=== PATIENT | female | born 1945 | race African-American/Black ===

== ENCOUNTER 2016-06-24 09:51 | Inpatient (IN) | payer BC, MEDICARE ==
[~2016-06-24] VITALS: Ht 167.6 cm; Wt 126.2 kg
[2016-06-24] MEDS ORDERED: WARFARIN SODIUM5 MG ORAL (10:09)
[2016-06-24] MEDS ORDERED: LOTREL1 CAP ORAL (10:09)
[2016-06-24] MEDS ORDERED: AMLODIPINE BESY10 MG ORAL (10:09)
[2016-06-24] MEDS ORDERED: CATAPRES0.1 MG ORAL (10:09)
[2016-06-24] MEDS ORDERED: LOVENOX10 M2 SUBQ (10:09)
--- NOTE | 2016-06-24 10:10 | Emergency Room Report ---
History of Present Illness General Chief Complaint: Dyspnea/Respdistress Source: Patient Present Illness HPI The patient present with complaints of shortness of breath Cough congestion Patient was at [facility] recently with pneumonia and pulmonary embolism Patient has restarted anticoagulations in February Denies any headache, some mild bodyaches however Denies any abdominal pain Denies any dysuria frequency Patient began feeling more short of breath over the past few days Also increased cough and productive phlegm Allergies: Coded Allergies: No Known Allergies (Verified Allergy, Unknown, 08/26/08) Patient History Past Medical History: see triage record Pertinent Family History: none Reviewed Nursing Documentation: PMH: Agreed, PSxH: Agreed Nursing Documentation-PMH Past Medical History: No History, Except For Hx Hypertension: Yes Review of Systems All Other Systems: negative except mentioned in HPI Physical Exam Vital Signs Date Time Temp Pulse Resp B/P Pulse Ox O2 Delivery O2 Flow Rate FiO2 06/24/16 10:02 97.9 104 32 196/102 100 Room Air Sp02 EP Interpretation: reviewed, normal General Appearance: mild distress - Appears congested and short of breath Head: normocephalic, atraumatic Eyes: bilateral eye EOMI, bilateral eye PERRL ENT: hearing grossly normal, normal pharynx, TMs + canals normal, uvula midline Neck: full range of motion, supple, no meningismus, no bony tend Respiratory: no respiratory distress, no retraction, no accessory muscle use, rhonchi - Diffuse rhonchi bilaterally, mildly tachypneic Cardiovascular #1: normal peripheral pulses, regular rate, rhythm, no gallop, no murmur, edema - Bilaterally Gastrointestinal: normal bowel sounds, non tender, soft, no mass, no organomegaly, non-distended, no guarding, no hernia, no pulsatile mass, no rebound Genitourinary: no CVA tenderness Musculoskeletal: normal inspection Neurologic: oriented x3, responsive, train 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-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 nml as tested, motor strength/ tone normal, sensory intact Psychiatric: mood/affect normal Skin: normal color, no rash, warm/dry, palpation normal Lymphatic: normal inspection, no adenopathy Medical Decision Making Diagnostic Impression: Primary Impression: Dyspnea Additional Impressions: CHF (congestive heart failure) ACS (acute coronary syndrome) ER Course Patient is a fairly complex patient with multiple differential to consideration including but not limited to cardiac cardiopulmonary and vascular emergencies Patient has known pulmonary emboli Is currently on anticoagulation with Coumadin Patient chest x-ray showed congestion Patient's BNP was also elevated At this time given the patient's recent repeat CAT scan imaging showing pulmonary embolism Given the patient is on anticoagulation and appropriately anticoagulated I do not feel that emergency CAT scan was required Patient also saturating at 100% on room air without labored breathing Patient admitted for further inpatient care Labs Test 06/24/16 10:00 White Blood Count 3.9 K/UL (4.8-10.8) Red Blood Count 4.70 M/UL (4.20-5.40) Hemoglobin 12.1 G/DL (12.0-16.0) Hematocrit 38.9 % (37.0-47.0) Mean Corpuscular Volume 83 FL (80-99) Mean Corpuscular Hemoglobin 25.8 PG (27.0-31.0) Mean Corpuscular Hemoglobin Concent 31.2 G/DL (32.0-36.0) Red Cell Distribution Width 15.9 % (11.6-14.8) Platelet Count 210 K/UL (150-450) Mean Platelet Volume 10.4 FL (6.5-10.1) Neutrophils (%) (Auto) 61.0 % (45.0-75.0) Lymphocytes (%) (Auto) 19.8 % (20.0-45.0) Monocytes (%) (Auto) 13.9 % (1.0-10.0) Eosinophils (%) (Auto) 4.1 % (0.0-3.0) Basophils (%) (Auto) 1.1 % (0.0-2.0) Prothrombin Time 29.4 SEC (9.30-11.50) Prothromb Time International Ratio 2.8 (0.9-1.1) Activated Partial Thromboplast Time 42 SEC (23-33) Sodium Level 142 mEQ/L (135-145) Potassium Level 4.3 mEQ/L (3.4-4.9) Chloride Level 98 mEQ/L (98-107) Carbon Dioxide Level 32 mEQ/L (20-30) Anion Gap 12 (5-15) Blood Urea Nitrogen 16 mg/dL (7-23) Creatinine 1.2 mg/dL (0.5-0.9) Estimat Glomerular Filtration Rate 53.8 mL/min (>60) Glucose Level 93 mg/dL (74-106) Calcium Level 9.5 mg/dL (8.6-10.2) Total Bilirubin 0.3 mg/dL (0.0-1.2) Aspartate Amino Transf (AST/SGOT) 19 U/L (5-40) Alanine Aminotransferase (ALT/SGPT) 18 U/L (3-33) Alkaline Phosphatase 106 U/L (35-104) Total Creatine Kinase 154 U/L (26-140) Creatine Kinase MB < 1.5 ng/mL (< 3.8) Creatine Kinase MB Relative Index 0.9 Troponin I < 0.30 ng/mL (<=0.30) Pro-B-Type Natriuretic Peptide 318 pg/mL (0-125) Total Protein 7.8 g/dL (6.6-8.7) Albumin 4.1 g/dL (3.5-5.2) Globulin 3.7 g/dL Albumin/Globulin Ratio 1.1 (1.0-2.7) Lipase 18 U/L (< 60) EKG Diagnostic Results Rate: normal Rhythm: NSR ST Segments: other - Nonspecific ST and T-wave changes Rhythm Strip Diag. Results EP Interpretation: yes Rate: 76 Rhythm: NSR, no PVC's, no ectopy Chest X-Ray Diagnostic Results EP Interpretation: Yes Findings: no consolidation, no effusion, no pneumothorax, other - Pulmonary congestion, cardiomegaly Number of Views: 1 Last Vital Signs Date Time Temp Pulse Resp B/P Pulse Ox O2 Delivery O2 Flow Rate FiO2 06/24/16 10:02 97.9 104 32 196/102 100 Room Air Status: improved Disposition: ADMITTED INPATIENT Condition: Serious SONIA SALDAÑA D.O. Jun 24, 2016 10:10
[2016-06-24 10:18] VITALS: BP 180/84
[2016-06-24 10:41] LABS: INR 2.8 (0.9-1.1); PROTHROMBIN TIME 29.4 SEC (9.30-11.50); TROPONIN I < 0.30 ng/mL (<=0.30)
[2016-06-24 10:42] LABS: ALANINE AMINOTRANSFERASE 18 U/L (3-33); ALBUMIN/GLOBULIN RATIO 1.1 (1.0-2.7); ANION GAP 12 (5-15); ASPARTATE AMINO TRANSFERASE 19 U/L (5-40); BASOPHILS % (AUTO) 1.1 % (0.0-2.0); CALCIUM 9.5 mg/dL (8.6-10.2); CARBON DIOXIDE 32 mEQ/L (20-30); CHLORIDE 98 mEQ/L (98-107); CREATININE 1.2 mg/dL (0.5-0.9); EOSINOPHILS % (AUTO) 4.1 % (0.0-3.0); GLOMERULAR FILTRATION RATE 53.8 mL/min (>60); HEMOLYSIS 3; LIPASE 18 U/L (< 60); LYMPHOCYTES % (AUTO) 19.8 % (20.0-45.0); MEAN CORPUSCULAR HEMOGLOBIN 25.8 PG (27.0-31.0); MEAN CORPUSCULAR HGB CONC 31.2 G/DL (32.0-36.0); MEAN CORPUSCULAR VOLUME 83 FL (80-99); MEAN PLATELET VOLUME 10.4 FL (6.5-10.1); MONOCYTES % (AUTO) 13.9 % (1.0-10.0); PLATELET COUNT 210 K/UL (150-450); POTASSIUM 4.3 mEQ/L (3.4-4.9); RED CELL DISTRIBUTION WIDTH 15.9 % (11.6-14.8); SODIUM 142 mEQ/L (135-145); TOTAL PROTEIN 7.8 g/dL (6.6-8.7); WHITE BLOOD COUNT 3.9 K/UL (4.8-10.8)
[2016-06-24 10:52] LABS: CKMB < 1.5 ng/mL (< 3.8)
--- NOTE | 2016-06-24 11:10 | Diagnostic Imaging Report ---
Indication: Chest pain Technique: XRAY CHEST 1 V Comparison: None Findings: Cardiac silhouette is prominent. There is mild central pulmonary vascular congestion. There is no consolidation or pleural effusion. Degenerative changes of the spine are seen. Atherosclerotic changes are noted. Impression: Cardiomegaly with mild central pulmonary vascular congestion.
[2016-06-24] MEDS ORDERED: Levalbuterol Inh UD 1.25mg/0.5ml HHN ONE (11:15)
[2016-06-24 13:10] VITALS: BP 156/85
[2016-06-24 14:49] VITALS: BP 163/96
[2016-06-24] MEDS ORDERED: LORazepam Inj 2mg/ml 1ml IV PRN (15:00)
[2016-06-24] MEDS ORDERED: Promethazine/Codeine 5ml UD ORAL PRN (15:00)
[2016-06-24] MEDS ORDERED: Nitroglycerin Subl 0.4mg tab (Bottle Of 25) SL PRN (15:00)
[2016-06-24] MEDS ORDERED: Morphine Sulfate 2mg/ml Inj IVP PRN (15:00)
[2016-06-24] MEDS ORDERED: DuoNeb 0.5-3(2.5)mg/3ml neb HHN PRN (15:00)
[2016-06-24 16:16] VITALS: BP 157/96
[2016-06-24] MEDS ORDERED: NovoLOG Insulin Flexpen SUBQ SCH (16:30)
[2016-06-24] MEDS: Solu-MEDROL 40mg Inj IVP SCH (17:20)
[2016-06-24] MEDS ORDERED: Solu-MEDROL 125mg Inj IV SCH (18:00)
[2016-06-24] MEDS ORDERED: Warfarin Sodium 5mg ORAL SCH (18:00)
[2016-06-24 20:00] VITALS: BP 173/94
[2016-06-24] MEDS ORDERED: Heparin 5000 units/ml inj SUBQ SCH (21:00)
[2016-06-24] MEDS: Theophylline ER 100mg ORAL SCH (22:23)
[2016-06-24] MEDS: Piperacillin/Tazobactam 3.375 GM in D5W 110 ML IVPB SCH (22:23)
[2016-06-25] VITALS: BP 148/86
[2016-06-25] MEDS: Solu-MEDROL 40mg Inj IVP SCH ×4 (00:51→22:12)
[2016-06-25 04:00] VITALS: BP 147/81
[2016-06-25] MEDS: Piperacillin/Tazobactam 3.375 GM in D5W 110 ML IVPB SCH ×3 (06:04→22:12)
[2016-06-25 06:52] LABS: INR 2.1 (0.9-1.1); PROTHROMBIN TIME 22.4 SEC (9.30-11.50)
[2016-06-25 08:11] VITALS: BP 160/81
[2016-06-25] MEDS ORDERED: Warfarin Sodium 5mg ORAL SCH (09:00)
[2016-06-25] MEDS: Theophylline ER 100mg ORAL SCH ×2 (09:08→22:12)
[2016-06-25 11:32] VITALS: BP 149/80
--- NOTE | 2016-06-25 13:33 | Consultation ---
History of Present Illness General Date patient seen: Jun 24, 2016 Time patient seen: 01:00 Chief Complaint: Dyspnea/Respdistress Referring physician: Dr. Mendoza Reason for Consultation: dyspnea Present Illness HPI 70 year old female with hx of CHF, COPD, HTN, PE presented with complaints of shortness of breath Cough congestion. Patient was at [facility] recently with pneumonia and pulmonary embolism Patient began feeling more short of breath over the past few days Also increased cough and productive phlegm, with yellow color Allergies: Coded Allergies: No Known Allergies (Verified Allergy, Unknown, 08/26/08) Medication History Scheduled Amlodipine Besylate* (Amlodipine Besylate*), 10 MG ORAL DAILY, (Reported) Clonidine Hcl* (Catapres*), 0.1 MG ORAL EVERY 6 HOURS, (Reported) Enoxaparin* (Lovenox*), 80 MG SUBQ DAILY, (Reported) Warfarin Sod* (Warfarin Sod*), 5 MG ORAL DAILY, (Reported) Miscellaneous Medications Amlodipine/Benazepril (Amlodipine-Benazepril 5-20 mg), 1 CAP ORAL, (Reported) Patient History Healthcare decision maker Resuscitation status Full Code Advanced Directive on File Past Medical/Surgical History Past Medical/Surgical History: (1) Pulmonary emboli (2) Morbid obesity with BMI of 40.0-44.9, adult (3) CHF (congestive heart failure) Review of Systems Respiratory: Reports: ANTOINE, shortness of breath, sputum Physical Exam Neck: non-tender, normal alignment Respiratory/Chest: chest wall non-tender, lungs clear Breasts: no masses Cardiovascular/Chest: normal peripheral pulses Abdomen: normal bowel sounds, non tender Genitourinary/Rectal: normal genital exam, normal rectal exam Extremities: normal range of motion, non-tender 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, no motor/sensory deficits Lymphatic: anterior cervical Musculoskeletal: normal muscle bulk Last 24 Hour Vital Signs Date Time Temp Pulse Resp B/P Pulse Ox O2 Delivery O2 Flow Rate FiO2 06/25/16 12:54 149/80 06/25/16 11:32 98.1 98 20 149/80 95 Room Air 06/25/16 09:08 88 160/81 06/25/16 08:11 98.2 88 20 160/81 94 Room Air 06/25/16 08:00 81 06/25/16 07:41 91 18 95 Room Air 06/25/16 07:33 91 18 95 Room Air 06/25/16 06:09 147/81 06/25/16 04:00 70 06/25/16 04:00 98.1 106 18 147/81 98 Room Air 06/25/16 02:46 85 18 95 Room Air 06/25/16 02:38 86 18 94 Room Air 06/25/16 00:30 100 18 95 Room Air 06/25/16 00:20 94 18 95 Room Air 06/25/16 00:18 148/86 06/25/16 00:00 98.2 97 18 148/86 96 Room Air 06/25/16 00:00 90 06/24/16 20:08 100 18 95 Room Air 06/24/16 20:00 96 18 94 Room Air 06/24/16 20:00 99.5 98 18 173/94 96 06/24/16 20:00 99 06/24/16 17:28 157/96 06/24/16 17:21 97 157/96 06/24/16 16:16 98.2 97 18 157/96 98 Room Air 06/24/16 16:00 95 06/24/16 14:49 98.4 99 18 163/96 97 Room Air 06/24/16 14:22 97.9 98 16 156/85 100 Room Air Intake and Output 06/24/16 06/25/16 19:00 07:00 Intake Total 240 ml 497.5 ml Balance 240 ml 497.5 ml Intake Oral 240 ml 360 ml IV Total 137.5 ml # Voids 2 2 Laboratory Tests Test 06/25/16 05:30 Prothrombin Time 22.4 SEC (9.30-11.50) H Prothromb Time International Ratio 2.1 (0.9-1.1) H Height (Feet): 5 Height (Inches): 6.00 Weight (Pounds): 275 Medications Current Medications Medications (Trade) Dose Ordered Sig/Maximus Route PRN Reason Start Time Stop Time Status Last Admin Dose Admin Albuterol/ Ipratropium (DuoNeb 0.5-3(2.5)mg/3ml) 3 ml EVERY 4 HOURS PRN HHN dyspnea 06/24/16 15:00 06/29/16 14:59 Amlodipine Besylate (Norvasc) 10 mg DAILY ORAL 06/24/16 16:00 07/24/16 15:59 06/25/16 09:08 Clonidine HCl (Catapres) 0.1 mg EVERY 6 HOURS ORAL 06/24/16 18:00 07/24/16 17:59 06/25/16 12:54 Dextrose (Dextrose 50%) STAT PRN IV Hypoglycemia 06/24/16 15:00 07/24/16 14:59 Furosemide (Lasix) 20 mg DAILY IV 06/25/16 09:00 07/25/16 08:59 06/25/16 09:07 Methylprednisolone Sodium Succinate (Solu-MEDROL) 40 mg EVERY 8 HOURS IVP 06/24/16 16:00 07/24/16 15:59 06/25/16 06:05 Morphine Sulfate (Morphine Sulfate) 2 mg EVERY 4 HOURS PRN IVP severe pain 7-10 06/24/16 15:00 07/01/16 14:59 Nitroglycerin (Ntg) 0.4 mg Q5M X 3 DOSES PRN SL Prn Chest Pain 06/24/16 15:00 07/24/16 14:59 Ondansetron HCl (Zofran) 4 mg Q6H PRN IVP Nausea & Vomiting 06/24/16 15:00 07/24/16 14:59 Piperacillin Sod/ Tazobactam Sod/ Dextrose (Zosyn/D5W) 110 ml @ 27.5 mls/hr EVERY 8 HOURS IVPB 06/24/16 22:00 07/01/16 21:59 06/25/16 06:04 Promethazine HCl/ Codeine (Phenergan with Codeine) 5 ml EVERY 6 HOURS PRN ORAL cough 06/24/16 15:00 07/24/16 14:59 Temazepam (Restoril) 15 mg HSPRN PRN ORAL Insomnia 06/24/16 15:00 07/01/16 14:59 Theophylline 100 mg 100 mg EVERY 12 HOURS ORAL 06/24/16 21:00 07/24/16 20:59 06/25/16 09:08 Warfarin Sodium (Coumadin per pharmacy) 1 ea DAILY PRN MISC . 06/24/16 16:45 07/24/16 16:44 Warfarin Sodium (Coumadin) 8 mg COUMADIN PO 06/25/16 17:00 06/25/16 17:01 Assessment/Plan Problem List: (1) Purulent bronchitis ICD Codes: J41.1 - Mucopurulent chronic bronchitis SNOMED: 85408650 (2) Morbid obesity with BMI of 40.0-44.9, adult ICD Codes: E66.01 - Morbid (severe) obesity due to excess calories; Z68.41 - Body mass index (BMI) 40.0-44.9, adult SNOMED: 493877542, 609688246 (3) CHF (congestive heart failure) ICD Codes: I50.9 - Heart failure, unspecified SNOMED: 97502102 (4) Dyspnea ICD Codes: R06.00 - Dyspnea, unspecified SNOMED: 039107658 Assessment/Plan respiratory treatment IV antibiotics short course of steroids chest pt incentive spirometry cardiology evaluation to optimize cardiac meds. JUAN DURAN Jun 25, 2016 13:33
[2016-06-25 16:21] VITALS: BP 143/78
[2016-06-25] MEDS ORDERED: Warfarin Sodium 4mg PO SCH (17:00)
[2016-06-25 20:00] VITALS: BP 130/68
--- NOTE | 2016-06-25 20:54 | Cardiology Report ---
APPROVED REPORT EXAM: Two-dimensional and M-mode echocardiogram with Doppler and color Doppler. INDICATION Left ventricular function M-Mode DIMENSIONS IVSd1.6 (0.7-1.1cm)Left Atrium (MM)3.6 (1.6-4.0cm) LVDd4.4 (3.5-5.6cm)Aortic Root2.7 (2.0-3.7cm) PWd0.8 (0.7-1.1cm)Aortic Cusp Exc.1.8 (1.5-2.0cm) LVDs3.1 (2.5-4.0cm) PWs1.2 cm Technically difficult study due to poor acoustic windows. Normal left ventricular chamber size, systolic function and wall motion , hoever on some view the mid to distal septum appears hypokinetic Left ventricular ejection fraction estimated to be 60-65%. Moderate left ventricular hypertrophy. No evidence of pericardial fat or effusion. Right cardiac chamber sizes are within normal limits. Moderate left atrial enlargement by 2D. Focal aortic valve sclerosis with adequate cusp excursion Thickened mitral valve leaflets with normal excursion. Mild mitral annulus and aortic root calcification. Pulmonic valve not well visualized. Normal tricuspid valve structure. IVC is normal in size with physiologic collapse. A color flow and spectral Doppler study was performed and revealed: No aortic regurgitation. No mitral regurgitation. Left ventricular diastolic dysfunction grade 1. Trace tricuspid regurgitation. Tricuspid systolic velocities suggests peak right ventricular systolic pressure of 10 mmHg
--- NOTE | 2016-06-25 21:05 | History and Physical ---
History of Present Illness General Date patient seen: Jun 25, 2016 Time patient seen: 21:00 Reason for Hospitalization: Dyspnea/Respdistress Present Illness HPI this is a nunfortunate morbid obese femlae ih history of pulmonary embolism reactive ariway disease snoring posible sleep apnea presend with severe sob sen inthe er admmmited noted to be wheezing Allergies: Coded Allergies: No Known Allergies (Verified Allergy, Unknown, 08/26/08) Medication History Scheduled Amlodipine Besylate* (Amlodipine Besylate*), 10 MG ORAL DAILY, (Reported) Clonidine Hcl* (Catapres*), 0.1 MG ORAL EVERY 6 HOURS, (Reported) Enoxaparin* (Lovenox*), 80 MG SUBQ DAILY, (Reported) Warfarin Sod* (Warfarin Sod*), 5 MG ORAL DAILY, (Reported) Miscellaneous Medications Amlodipine/Benazepril (Amlodipine-Benazepril 5-20 mg), 1 CAP ORAL, (Reported) Patient History Healthcare decision maker Resuscitation status Full Code Advanced Directive on File Patient History Narrative hypertenidosin morbid obese oa knee pulmonary embiolism fatuge renal mass Review of Systems Eye: Reports: no symptoms ENT: Reports: no symptoms Respiratory: Reports: cough, shortness of breath, sputum, wheezing Gastrointestinal: Reports: no symptoms Genitourinary: Reports: no symptoms Musculoskeletal: Reports: joint pain, joint swelling, muscle pain Hematologic/Lymphatic: Reports: other - historyof pulmonary embolism on coumadin Physical Exam General Appearance: WD/WN, other - obese HEENT: normocephalic Neck: non-tender Respiratory/Chest: other - inspiratoty and expiratory wheezing Cardiovascular/Chest: normal rate, regular rhythm Abdomen: normal bowel sounds, soft Extremities: other - no cvlubbing Last 24 Hour Vital Signs Date Time Temp Pulse Resp B/P Pulse Ox O2 Delivery O2 Flow Rate FiO2 06/25/16 19:46 75 18 95 Room Air 06/25/16 19:45 72 18 Room Air 06/25/16 19:36 72 18 95 Room Air 06/25/16 17:48 143/78 06/25/16 16:21 98.1 87 18 143/78 95 Room Air 06/25/16 14:57 84 16 96 Room Air 06/25/16 14:57 86 16 96 Room Air 06/25/16 12:54 149/80 06/25/16 12:00 79 06/25/16 11:32 98.1 98 20 149/80 95 Room Air 06/25/16 11:09 92 18 96 Room Air 06/25/16 11:02 89 18 95 Room Air 06/25/16 09:08 88 160/81 06/25/16 08:11 98.2 88 20 160/81 94 Room Air 06/25/16 08:00 81 06/25/16 07:41 91 18 95 Room Air 06/25/16 07:33 91 18 95 Room Air 06/25/16 06:09 147/81 06/25/16 04:00 70 06/25/16 04:00 98.1 106 18 147/81 98 Room Air 06/25/16 02:46 85 18 95 Room Air 06/25/16 02:38 86 18 94 Room Air 06/25/16 00:30 100 18 95 Room Air 06/25/16 00:20 94 18 95 Room Air 06/25/16 00:18 148/86 06/25/16 00:00 98.2 97 18 148/86 96 Room Air 06/25/16 00:00 90 Intake and Output 06/24/16 06/25/16 19:00 07:00 Intake Total 240 ml 497.5 ml Balance 240 ml 497.5 ml Intake Oral 240 ml 360 ml IV Total 137.5 ml # Voids 2 2 Laboratory Tests Test 06/25/16 05:30 Prothrombin Time 22.4 SEC (9.30-11.50) H Prothromb Time International Ratio 2.1 (0.9-1.1) H Height (Feet): 5 Height (Inches): 6.00 Weight (Pounds): 275 Medications Current Medications Medications (Trade) Dose Ordered Sig/Maximsu Route PRN Reason Start Time Stop Time Status Last Admin Dose Admin Albuterol/ Ipratropium (DuoNeb 0.5-3(2.5)mg/3ml) 3 ml EVERY 4 HOURS PRN HHN dyspnea 06/24/16 15:00 06/29/16 14:59 Amlodipine Besylate (Norvasc) 10 mg DAILY ORAL 06/24/16 16:00 07/24/16 15:59 06/25/16 09:08 Clonidine HCl (Catapres) 0.1 mg EVERY 6 HOURS ORAL 06/24/16 18:00 07/24/16 17:59 06/25/16 17:48 Dextrose (Dextrose 50%) STAT PRN IV Hypoglycemia 06/24/16 15:00 07/24/16 14:59 Furosemide (Lasix) 20 mg DAILY IV 06/25/16 09:00 07/25/16 08:59 06/25/16 09:07 Methylprednisolone Sodium Succinate (Solu-MEDROL) 40 mg EVERY 8 HOURS IVP 06/24/16 16:00 07/24/16 15:59 06/25/16 13:47 Morphine Sulfate (Morphine Sulfate) 2 mg EVERY 4 HOURS PRN IVP severe pain 7-10 06/24/16 15:00 07/01/16 14:59 Nitroglycerin (Ntg) 0.4 mg Q5M X 3 DOSES PRN SL Prn Chest Pain 06/24/16 15:00 07/24/16 14:59 Ondansetron HCl (Zofran) 4 mg Q6H PRN IVP Nausea & Vomiting 06/24/16 15:00 07/24/16 14:59 Piperacillin Sod/ Tazobactam Sod/ Dextrose (Zosyn/D5W) 110 ml @ 27.5 mls/hr EVERY 8 HOURS IVPB 06/24/16 22:00 07/01/16 21:59 06/25/16 13:48 Promethazine HCl/ Codeine (Phenergan with Codeine) 5 ml EVERY 6 HOURS PRN ORAL cough 06/24/16 15:00 07/24/16 14:59 Temazepam (Restoril) 15 mg HSPRN PRN ORAL Insomnia 06/24/16 15:00 07/01/16 14:59 Theophylline 100 mg 100 mg EVERY 12 HOURS ORAL 06/24/16 21:00 07/24/16 20:59 06/25/16 09:08 Warfarin Sodium (Coumadin per pharmacy) 1 ea DAILY PRN MISC . 06/24/16 16:45 07/24/16 16:44 Assessment/Plan Status Narrative respiratory insufficeincy puylmonjary emolism tracheobronchitis reactive air way diease exacerbation morbid obese hypertenison Assessment/Plan [facility] emilee lgive zithromax and on zpack monitor coumadin level adn iinr bronchiodilator doing we;;hypertenison on antihypertensive LILY DONIS Jun 25, 2016 21:05
--- NOTE | 2016-06-25 21:14 | Cardiology Report ---
APPROVED REPORT EKG Measurement Heart [id number] Normal sinus rhythm Possible Left atrial enlargement Borderline ECG
[2016-06-26 00:20] VITALS: BP 124/68
[2016-06-26 04:00] VITALS: BP 136/77
[2016-06-26] MEDS: Solu-MEDROL 40mg Inj IVP SCH ×3 (05:20→21:29)
[2016-06-26] MEDS: Piperacillin/Tazobactam 3.375 GM in D5W 110 ML IVPB SCH ×3 (05:20→21:29)
[2016-06-26 07:35] LABS: MEAN CORPUSCULAR HEMOGLOBIN 26.7 PG (27.0-31.0); MEAN CORPUSCULAR HGB CONC 32.7 G/DL (32.0-36.0); MEAN CORPUSCULAR VOLUME 82 FL (80-99); MEAN PLATELET VOLUME 9.2 FL (6.5-10.1); PLATELET COUNT 215 K/UL (150-450); RED BLOOD COUNT 4.56 M/UL (4.20-5.40); RED CELL DISTRIBUTION WIDTH 15.6 % (11.6-14.8); WHITE BLOOD COUNT 10.9 K/UL (4.8-10.8)
[2016-06-26 07:43] LABS: CREATININE 1.4 mg/dL (0.5-0.9); GLOMERULAR FILTRATION RATE 45.1 mL/min (>60); POTASSIUM 3.8 mEQ/L (3.4-4.9); TOTAL PROTEIN 7.3 g/dL (6.6-8.7)
[2016-06-26 07:59] LABS: INR 2.7 (0.9-1.1)
[2016-06-26 08:00] VITALS: BP 131/68
[2016-06-26] MEDS: Azithromycin 250mg tab ORAL SCH (08:52)
[2016-06-26] MEDS: Theophylline ER 100mg ORAL SCH ×2 (08:52→21:29)
[2016-06-26 11:51] LABS: BAND NEUTROPHILS % (MANUAL) 1 % (0-8); LYMPHOCYTES % (MANUAL) 11 % (20-45); NEUTROPHILS % (MANUAL) 82 % (45-75); TOTAL CELLS COUNTED 100
[2016-06-26 11:52] LABS: BASOPHILS % (MANUAL) 0 % (0-2); EOSINOPHILS % (MANUAL) 0 % (0-3); PLATELET ESTIMATE ADEQUATE; PLATELET MORPHOLOGY NORMAL
[2016-06-26 12:00] VITALS: BP 130/73
[2016-06-26 16:00] VITALS: BP 126/69
[2016-06-26] MEDS ORDERED: Warfarin Sodium 5mg ORAL SCH (17:00)
[2016-06-26 20:00] VITALS: BP 103/56
[2016-06-27] VITALS: BP 134/71
[2016-06-27 04:00] VITALS: BP 139/74
[2016-06-27] MEDS: Piperacillin/Tazobactam 3.375 GM in D5W 110 ML IVPB SCH ×3 (05:37→21:06)
[2016-06-27] MEDS: Solu-MEDROL 40mg Inj IVP SCH (05:38)
[2016-06-27] MEDS: Azithromycin 250mg tab ORAL SCH (08:04)
[2016-06-27] MEDS: Theophylline ER 100mg ORAL SCH ×2 (08:04→21:06)
[2016-06-27 08:14] LABS: INR 3.1 (0.9-1.1); PROTHROMBIN TIME 32.3 SEC (9.30-11.50)
[2016-06-27 08:34] VITALS: BP 134/74
[2016-06-27 11:39] VITALS: BP 116/60
--- NOTE | 2016-06-27 12:56 | Diagnostic Imaging Report ---
Indication: DYSPNEA, cough Technique: One view of the chest Comparison: 06/24/2016 Findings: Lungs and pleural spaces are clear. Heart size is upper limits normal. Previously demonstrated central vascular congestion has improved. Atelectasis is seen in the right perihilar region Impression: Improved interstitial congestion, over 2 days Other findings as noted
--- NOTE | 2016-06-27 15:12 | Pulmonology Progress Note ---
Assessment/Plan Problems: (1) Purulent bronchitis (2) Morbid obesity with BMI of 40.0-44.9, adult (3) CHF (congestive heart failure) (4) Dyspnea Assessment/Plan respiratory treatment check sputum Iv antibiotics chest pt on lasix and theophyline med/surg t Subjective ROS Limited/Unobtainable: No Interval Events: comforabel, still coughing, Allergies: Coded Allergies: No Known Allergies (Verified Allergy, Unknown, 08/26/08) Objective Last 24 Hour Vital Signs Date Time Temp Pulse Resp B/P Pulse Ox O2 Delivery O2 Flow Rate FiO2 06/27/16 12:00 116/60 06/27/16 12:00 69 06/27/16 11:39 97.2 63 20 116/60 95 Room Air 06/27/16 08:34 97.5 76 18 134/74 95 Room Air 06/27/16 08:04 76 134/74 06/27/16 08:00 79 06/27/16 05:37 139/74 06/27/16 04:00 97.7 60 20 139/74 95 Room Air 06/27/16 04:00 55 06/27/16 03:20 Room Air 21 06/27/16 03:20 Room Air 21 06/27/16 00:07 134/71 06/27/16 00:00 54 06/27/16 00:00 97.9 58 18 134/71 96 Room Air 06/26/16 23:01 70 20 98 Room Air 21 06/26/16 23:00 66 20 96 Room Air 21 06/26/16 20:00 98.1 61 18 103/56 96 Room Air 06/26/16 20:00 79 06/26/16 19:30 93 18 95 Room Air 21 06/26/16 19:30 70 20 98 Room Air 21 06/26/16 17:39 126/69 06/26/16 16:00 64 06/26/16 16:00 97.5 58 18 126/69 94 Room Air 06/26/16 15:55 72 19 98 Room Air 21 06/26/16 15:55 72 19 98 Room Air 21 Intake and Output 06/26/16 06/27/16 19:00 07:00 Intake Total 760 ml 230.0 ml Balance 760 ml 230.0 ml Intake Oral 650 ml 120 ml IV Total 110 ml 110.0 ml # Voids 3 Objective General Appearance: WD/WN HEENT: normocephalic, atraumatic Respiratory/Chest: chest wall non-tender, loud rhonchi Cardiovascular: normal peripheral pulses, normal rate Genitourinary: normal external genitalia Extremities: no cyanosis, no clubbing Skin: no rash 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 Microbiology Date/Time Source Procedure Growth Status 06/26/16 08:50 Sputum Gram Stain - Final Resulted 06/26/16 08:50 Sputum Sputum Culture Pending Resulted Laboratory Tests 06/27/16 07:30: Prothrombin Time 32.3H, Prothromb Time International Ratio 3.1H Current Medications Medications (Trade) Dose Ordered Sig/Maximus Route PRN Reason Start Time Stop Time Status Last Admin Dose Admin Albuterol/ Ipratropium (DuoNeb 0.5-3(2.5)mg/3ml) 3 ml EVERY 4 HOURS PRN HHN dyspnea 06/24/16 15:00 06/29/16 14:59 Amlodipine Besylate (Norvasc) 10 mg DAILY ORAL 06/24/16 16:00 07/24/16 15:59 06/27/16 08:04 Azithromycin (Zithromax) 500 mg DAILY ORAL 06/26/16 09:00 07/03/16 08:59 06/27/16 08:04 Clonidine HCl (Catapres) 0.1 mg EVERY 6 HOURS ORAL 06/24/16 18:00 07/24/16 17:59 06/27/16 05:37 Dextrose (Dextrose 50%) STAT PRN IV Hypoglycemia 06/24/16 15:00 07/24/16 14:59 Furosemide (Lasix) 20 mg DAILY IV 06/25/16 09:00 07/25/16 08:59 06/27/16 08:05 Morphine Sulfate (Morphine Sulfate) 2 mg EVERY 4 HOURS PRN IVP severe pain 7-10 06/24/16 15:00 07/01/16 14:59 Nitroglycerin (Ntg) 0.4 mg Q5M X 3 DOSES PRN SL Prn Chest Pain 06/24/16 15:00 07/24/16 14:59 Ondansetron HCl (Zofran) 4 mg Q6H PRN IVP Nausea & Vomiting 06/24/16 15:00 07/24/16 14:59 Piperacillin Sod/ Tazobactam Sod/ Dextrose (Zosyn/D5W) 110 ml @ 27.5 mls/hr EVERY 8 HOURS IVPB 06/24/16 22:00 07/01/16 21:59 06/27/16 13:52 Promethazine HCl/ Codeine (Phenergan with Codeine) 5 ml EVERY 6 HOURS PRN ORAL cough 06/24/16 15:00 07/24/16 14:59 Temazepam (Restoril) 15 mg HSPRN PRN ORAL Insomnia 06/24/16 15:00 07/01/16 14:59 Theophylline 100 mg 100 mg EVERY 12 HOURS ORAL 06/24/16 21:00 07/24/16 20:59 06/27/16 08:04 Warfarin Sodium (Coumadin per pharmacy) 1 ea DAILY PRN MISC . 06/24/16 16:45 07/24/16 16:44 JUAN DURAN Jun 27, 2016 15:12
[2016-06-27 16:00] VITALS: BP 127/76
[2016-06-27 20:00] VITALS: BP 131/63
[2016-06-28] VITALS: BP 110/59
[2016-06-28 04:00] VITALS: BP 112/59
[2016-06-28] MEDS: Piperacillin/Tazobactam 3.375 GM in D5W 110 ML IVPB SCH ×3 (05:23→21:27)
[2016-06-28 08:17] VITALS: BP 120/58
[2016-06-28] MEDS: Theophylline ER 100mg ORAL SCH ×2 (09:15→21:27)
[2016-06-28] MEDS: Azithromycin 250mg tab ORAL SCH (09:15)
[2016-06-28 10:08] LABS: INR 2.5 (0.9-1.1); PROTHROMBIN TIME 26.1 SEC (9.30-11.50)
[2016-06-28 11:21] VITALS: BP 119/58
[2016-06-28 16:00] VITALS: BP 116/61
--- NOTE | 2016-06-28 16:10 | Pulmonology Progress Note ---
Assessment/Plan Problems: (1) Purulent bronchitis (2) Morbid obesity with BMI of 40.0-44.9, adult (3) CHF (congestive heart failure) (4) Dyspnea Assessment/Plan improivng check electrolytes respiratory treatment check sputum Iv antibiotics chest pt on lasix and theophyline med/surg today dc home in 1- 2 days t Subjective ROS Limited/Unobtainable: No Constitutional: Reports: no symptoms HEENT: Repors: no symptoms Respiratory: Reports: no symptoms Cardiovascular: Reports: no symptoms Allergies: Coded Allergies: No Known Allergies (Verified Allergy, Unknown, 08/26/08) Objective Last 24 Hour Vital Signs Date Time Temp Pulse Resp B/P Pulse Ox O2 Delivery O2 Flow Rate FiO2 06/28/16 12:00 69 06/28/16 11:49 119/58 06/28/16 11:21 97.2 84 18 119/58 95 Room Air 06/28/16 10:26 133 06/28/16 09:15 68 120/58 06/28/16 08:17 97.7 68 18 120/58 96 Room Air 06/28/16 08:00 71 06/28/16 05:17 112/59 06/28/16 04:00 65 06/28/16 04:00 97.7 56 16 112/59 97 Room Air 06/28/16 00:00 97.2 60 16 110/59 95 Room Air 06/28/16 00:00 110/59 06/28/16 00:00 59 06/27/16 20:00 97.9 82 18 131/63 96 Room Air 06/27/16 20:00 71 06/27/16 17:43 127/76 Intake and Output 06/27/16 06/28/16 19:00 07:00 Intake Total 377.5 ml 779.3 ml Output Total 1 ml Balance 377.5 ml 778.3 ml Intake Oral 240 ml 600 ml IV Total 137.5 ml 179.3 ml Output Urine Total 1 ml # Voids 2 3 Objective General Appearance: WD/WN HEENT: normocephalic, atraumatic Respiratory/Chest: chest wall non-tender, loud rhonchi Cardiovascular: normal peripheral pulses, normal rate Genitourinary: normal external genitalia Extremities: no cyanosis, no clubbing Skin: no rash Neurologic/Psychiatric: access developer II-XII grossly normal HEENT: normocephalic, atraumatic Respiratory/Chest: chest wall non-tender, lungs clear Cardiovascular: normal peripheral pulses, regular rhythm Abdomen: normal bowel sounds, soft, non tender Extremities: no cyanosis, no clubbing Microbiology Date/Time Source Procedure Growth Status 06/26/16 08:50 Sputum Gram Stain - Final Complete 06/26/16 08:50 Sputum Sputum Culture - Final NORMAL UPPER RESPIRATORY NERY PRESENT Complete Laboratory Tests 06/28/16 09:20: Prothrombin Time 26.1H, Prothromb Time International Ratio 2.5H Current Medications Medications (Trade) Dose Ordered Sig/Maximus Route PRN Reason Start Time Stop Time Status Last Admin Dose Admin Albuterol/ Ipratropium (DuoNeb 0.5-3(2.5)mg/3ml) 3 ml EVERY 4 HOURS PRN HHN dyspnea 06/24/16 15:00 06/29/16 14:59 Amlodipine Besylate (Norvasc) 10 mg DAILY ORAL 06/24/16 16:00 07/24/16 15:59 06/28/16 09:15 Azithromycin (Zithromax) 500 mg DAILY ORAL 06/26/16 09:00 07/03/16 08:59 06/28/16 09:15 Clonidine HCl (Catapres) 0.1 mg EVERY 6 HOURS ORAL 06/24/16 18:00 07/24/16 17:59 06/28/16 11:49 Dextrose (Dextrose 50%) STAT PRN IV Hypoglycemia 06/24/16 15:00 07/24/16 14:59 Furosemide (Lasix) 20 mg DAILY IV 06/25/16 09:00 07/25/16 08:59 06/28/16 09:16 Morphine Sulfate (Morphine Sulfate) 2 mg EVERY 4 HOURS PRN IVP severe pain 7-10 06/24/16 15:00 07/01/16 14:59 Nitroglycerin (Ntg) 0.4 mg Q5M X 3 DOSES PRN SL Prn Chest Pain 06/24/16 15:00 07/24/16 14:59 Ondansetron HCl (Zofran) 4 mg Q6H PRN IVP Nausea & Vomiting 06/24/16 15:00 07/24/16 14:59 Piperacillin Sod/ Tazobactam Sod/ Dextrose (Zosyn/D5W) 110 ml @ 27.5 mls/hr EVERY 8 HOURS IVPB 06/24/16 22:00 07/01/16 21:59 06/28/16 13:54 Promethazine HCl/ Codeine (Phenergan with Codeine) 5 ml EVERY 6 HOURS PRN ORAL cough 06/24/16 15:00 07/24/16 14:59 Temazepam (Restoril) 15 mg HSPRN PRN ORAL Insomnia 06/24/16 15:00 07/01/16 14:59 Theophylline 100 mg 100 mg EVERY 12 HOURS ORAL 06/24/16 21:00 07/24/16 20:59 06/28/16 09:15 Warfarin Sodium (Coumadin per pharmacy) 1 ea DAILY PRN MISC . 06/24/16 16:45 07/24/16 16:44 Warfarin Sodium (Coumadin) 6 mg COUMADIN ORAL 06/28/16 17:00 06/28/16 17:01 JUAN DURAN Jun 28, 2016 16:10
[2016-06-28] MEDS ORDERED: Warfarin Sodium 3mg ORAL SCH (17:00)
[2016-06-28] MEDS ORDERED: Nitroglycerin Subl 0.4mg tab (Bottle Of 25) SL PRN (18:00)
[2016-06-28] MEDS ORDERED: Promethazine/Codeine 5ml UD ORAL PRN (18:00)
[2016-06-28 20:00] VITALS: BP 117/54
[2016-06-28] MEDS ORDERED: Morphine Sulfate 2mg/ml Inj IVP PRN (21:00)
[2016-06-28] MEDS ORDERED: DuoNeb 0.5-3(2.5)mg/3ml neb HHN PRN (21:00)
[2016-06-29] VITALS: BP 116/62
[2016-06-29 04:00] VITALS: BP 137/71
[2016-06-29] MEDS: Piperacillin/Tazobactam 3.375 GM in D5W 110 ML IVPB SCH ×3 (05:41→21:13)
[2016-06-29 06:44] LABS: BASOPHILS % (AUTO) 0.8 % (0.0-2.0); EOSINOPHILS % (AUTO) 1.8 % (0.0-3.0); LYMPHOCYTES % (AUTO) 24.5 % (20.0-45.0); MEAN CORPUSCULAR HEMOGLOBIN 27.1 PG (27.0-31.0); MEAN CORPUSCULAR HGB CONC 32.1 G/DL (32.0-36.0); MEAN CORPUSCULAR VOLUME 84 FL (80-99); MEAN PLATELET VOLUME 8.4 FL (6.5-10.1); MONOCYTES % (AUTO) 12.6 % (1.0-10.0); NEUTROPHILS % (AUTO) 60.2 % (45.0-75.0); PLATELET COUNT 238 K/UL (150-450); RED BLOOD COUNT 4.24 M/UL (4.20-5.40); RED CELL DISTRIBUTION WIDTH 15.5 % (11.6-14.8); WHITE BLOOD COUNT 8.7 K/UL (4.8-10.8)
[2016-06-29 06:45] LABS: PROTHROMBIN TIME 20.5 SEC (9.30-11.50)
[2016-06-29 07:19] LABS: ALBUMIN/GLOBULIN RATIO 1.1 (1.0-2.7); CALCIUM 8.7 mg/dL (8.6-10.2); CREATININE 1.4 mg/dL (0.5-0.9); GLOMERULAR FILTRATION RATE 45.1 mL/min (>60); POTASSIUM 3.5 mEQ/L (3.4-4.9); TOTAL PROTEIN 6.2 g/dL (6.6-8.7)
[2016-06-29 07:51] VITALS: BP 136/68
[2016-06-29] MEDS: Theophylline ER 100mg ORAL SCH ×2 (08:40→21:12)
[2016-06-29] MEDS ORDERED: Azithromycin 250mg tab ORAL SCH (09:00)
[2016-06-29 11:24] VITALS: BP 124/69
[2016-06-29 16:16] VITALS: BP 107/53
[2016-06-29] MEDS ORDERED: Warfarin Sodium 5mg ORAL ONE (17:00)
[2016-06-29] MEDS ORDERED: Tubing IV Secondary IV ONE (17:39)
[2016-06-29] MEDS ORDERED: NS 275ml ONE (17:39)
--- NOTE | 2016-06-29 18:26 | Pulmonology Progress Note ---
Assessment/Plan Problems: (1) Purulent bronchitis (2) Morbid obesity with BMI of 40.0-44.9, adult (3) CHF (congestive heart failure) (4) Dyspnea Assessment/Plan improivng check electrolytes respiratory treatment check sputum Iv antibiotics chest pt med/surg today dc home in am t Subjective ROS Limited/Unobtainable: No Allergies: Coded Allergies: No Known Allergies (Verified Allergy, Unknown, 08/26/08) Objective Last 24 Hour Vital Signs Date Time Temp Pulse Resp B/P Pulse Ox O2 Delivery O2 Flow Rate FiO2 06/29/16 17:38 107/53 06/29/16 16:16 97.7 73 19 107/53 93 Room Air 06/29/16 12:48 125/60 06/29/16 11:24 97.9 80 19 124/69 98 Room Air 06/29/16 08:41 96 136/68 06/29/16 07:51 97.5 96 19 136/68 95 Room Air 06/29/16 06:46 122/63 06/29/16 04:00 97.3 71 18 137/71 96 Room Air 06/29/16 00:00 97.0 74 18 116/62 94 Room Air 06/29/16 00:00 116/62 06/28/16 20:00 97.0 119 16 117/54 94 Room Air 06/28/16 18:30 116/61 Intake and Output 06/28/16 06/29/16 19:00 07:00 Intake Total 322.5 ml 517.5 ml Balance 322.5 ml 517.5 ml Intake Oral 240 ml 380 ml IV Total 82.5 ml 137.5 ml # Voids 2 5 # Bowel Movements 2 Objective General Appearance: WD/WN HEENT: normocephalic, atraumatic Respiratory/Chest: chest wall non-tender, loud rhonchi Cardiovascular: normal peripheral pulses, normal rate Genitourinary: normal external genitalia Extremities: no cyanosis, no clubbing Skin: no rash Neurologic/Psychiatric: asthma educator II-XII grossly normal Laboratory Tests 06/29/16 06:14: White Blood Count 8.7, Red Blood Count 4.24, Hemoglobin 11.5L, Hematocrit 35.8L , Mean Corpuscular Volume 84, Mean Corpuscular Hemoglobin 27.1, Mean Corpuscular Hemoglobin Concent 32.1, Red Cell Distribution Width 15.5H, Platelet Count 238, Mean Platelet Volume 8.4, Neutrophils (%) (Auto) 60.2, Lymphocytes (%) (Auto) 24.5, Monocytes (%) (Auto) 12.6H, Eosinophils (%) (Auto) 1.8, Basophils (%) (Auto) 0.8, Prothrombin Time 20.5H, Prothromb Time International Ratio 2.0H, Sodium Level 141, Potassium Level 3.5, Chloride Level 96L, Carbon Dioxide Level 31H, Anion Gap 14, Blood Urea Nitrogen 32H, Creatinine 1.4H, Estimat Glomerular Filtration Rate 45.1, Glucose Level 101, Calcium Level 8.7, Total Bilirubin 0.3, Aspartate Amino Transf (AST/SGOT) 13, Alanine Aminotransferase (ALT/SGPT) 14, Alkaline Phosphatase 74, Pro-B-Type Natriuretic Peptide 86, Total Protein 6.2L, Albumin 3.3L, Globulin 2.9, Albumin/ Globulin Ratio 1.1 Current Medications Medications (Trade) Dose Ordered Sig/Maximus Route PRN Reason Start Time Stop Time Status Last Admin Dose Admin Albuterol/ Ipratropium (DuoNeb 0.5-3(2.5)mg/3ml) 3 ml EVERY 4 HOURS PRN HHN dyspnea 06/28/16 21:00 07/03/16 20:59 Amlodipine Besylate (Norvasc) 10 mg DAILY ORAL 06/29/16 09:00 07/29/16 08:59 06/29/16 08:41 Azithromycin (Zithromax) 500 mg DAILY ORAL 06/29/16 09:00 07/02/16 08:59 06/29/16 08:40 Clonidine HCl (Catapres) 0.1 mg EVERY 6 HOURS ORAL 06/28/16 18:30 07/28/16 18:29 06/29/16 17:38 Dextrose (Dextrose 50%) STAT PRN IV Hypoglycemia 06/29/16 15:00 07/29/16 14:59 Furosemide (Lasix) 20 mg DAILY IV 06/29/16 09:00 07/29/16 08:59 06/29/16 08:41 Morphine Sulfate (Morphine Sulfate) 2 mg EVERY 4 HOURS PRN IVP severe pain 7-10 06/28/16 21:00 07/05/16 20:59 Nitroglycerin (Ntg) 0.4 mg Q5M X 3 DOSES PRN SL Prn Chest Pain 06/28/16 18:00 07/28/16 17:59 Ondansetron HCl (Zofran) 4 mg Q6H PRN IVP Nausea & Vomiting 06/28/16 21:00 07/28/16 20:59 Piperacillin Sod/ Tazobactam Sod/ Dextrose (Zosyn/D5W) 110 ml @ 27.5 mls/hr EVERY 8 HOURS IVPB 06/28/16 22:00 06/30/16 21:59 06/29/16 14:46 Promethazine HCl/ Codeine (Phenergan with Codeine) 5 ml EVERY 6 HOURS PRN ORAL cough 06/28/16 18:00 07/28/16 17:59 Temazepam (Restoril) 15 mg HSPRN PRN ORAL Insomnia 06/29/16 15:00 07/06/16 14:59 Theophylline (Pablo-Dur) 100 mg EVERY 12 HOURS ORAL 06/28/16 21:00 07/28/16 20:59 06/29/16 08:40 Warfarin Sodium (Coumadin per pharmacy) 1 ea DAILY PRN MISC . 06/29/16 09:00 07/29/16 08:59 JUAN DURAN Jun 29, 2016 18:26
[2016-06-29 20:00] VITALS: BP 115/65
[2016-06-30] VITALS: BP 117/65
[2016-06-30 04:00] VITALS: BP 142/78
--- NOTE | 2016-06-30 07:16 | Pulmonology Progress Note ---
Assessment/Plan Assessment/Plan ASSESSMENT dyspnea reactive airway disease exacerbation purulent bronchitis/tracheobronchitis history of PE morbid obesity possible [place] HTN PLAN OF CARE MS floor O2 prn , pulmonary toilet with HHN and CPT empiric antibiotics s/p short pulse of steroids antitussive prn continue Theophylline improving IS BP management with CCB, stable ECHO with preserved EF 60-65% and RVSP of 10 , moderate LVH initial CXR with cardiomegaly with mild central pulmonary vascular congestion fup CXR with improvement in pulmonary congestion, continue Lasix for now on Coumadin, keep INR in therapeutic range 2-3 per pharmacy will benefit from outpt sleep study dc today as per PMD Of note: the patient was seen at 545 this am and the time of this note does not correspond to the actual time the patient was seen case discussed and evaluated by supervising physician . Subjective Allergies: Coded Allergies: No Known Allergies (Verified Allergy, Unknown, 08/26/08) Subjective feeling better less cough, no SOB, no wheezing afebrile no chest pain, no palpitations, no dizziness Objective Last 24 Hour Vital Signs Date Time Temp Pulse Resp B/P Pulse Ox O2 Delivery O2 Flow Rate FiO2 06/30/16 04:00 97.9 102 20 142/78 95 Room Air 06/30/16 00:00 117/65 06/30/16 00:00 97.7 75 20 117/65 94 Room Air 06/29/16 20:00 97.5 87 18 115/65 93 Room Air 06/29/16 17:38 107/53 06/29/16 16:16 97.7 73 19 107/53 93 Room Air 06/29/16 12:48 125/60 06/29/16 11:24 97.9 80 19 124/69 98 Room Air 06/29/16 08:41 96 136/68 06/29/16 07:51 97.5 96 19 136/68 95 Room Air Intake and Output 06/29/16 06/30/16 19:00 07:00 Intake Total 450 ml 240 ml Balance 450 ml 240 ml Intake Oral 450 ml 240 ml # Voids 2 4 # Bowel Movements 1 General Appearance: no acute distress, other - morbidly obese HEENT: normocephalic, atraumatic, anicteric, mucous membranes moist, PERRL Respiratory/Chest: lungs clear - with moderate air entry Cardiovascular: normal peripheral pulses, normal rate, regular rhythm, no JVD Abdomen: normal bowel sounds, soft, non tender - obese Genitourinary: normal external genitalia Extremities: no edema Neurologic/Psychiatric: no motor/sensory deficits, alert, oriented x 3, responsive Musculoskeletal: normal muscle bulk Current Medications Medications (Trade) Dose Ordered Sig/Maximus Route PRN Reason Start Time Stop Time Status Last Admin Dose Admin Albuterol/ Ipratropium (DuoNeb 0.5-3(2.5)mg/3ml) 3 ml EVERY 4 HOURS PRN HHN dyspnea 06/28/16 21:00 07/03/16 20:59 Amlodipine Besylate (Norvasc) 10 mg DAILY ORAL 06/29/16 09:00 07/29/16 08:59 06/29/16 08:41 Azithromycin (Zithromax) 500 mg DAILY ORAL 06/29/16 09:00 07/02/16 08:59 06/29/16 08:40 Clonidine HCl (Catapres) 0.1 mg EVERY 6 HOURS ORAL 06/28/16 18:30 07/28/16 18:29 06/29/16 17:38 Dextrose (Dextrose 50%) STAT PRN IV Hypoglycemia 06/29/16 15:00 07/29/16 14:59 Furosemide (Lasix) 20 mg DAILY IV 06/29/16 09:00 07/29/16 08:59 06/29/16 08:41 Morphine Sulfate (Morphine Sulfate) 2 mg EVERY 4 HOURS PRN IVP severe pain 7-10 06/28/16 21:00 07/05/16 20:59 Nitroglycerin (Ntg) 0.4 mg Q5M X 3 DOSES PRN SL Prn Chest Pain 06/28/16 18:00 07/28/16 17:59 Ondansetron HCl (Zofran) 4 mg Q6H PRN IVP Nausea & Vomiting 06/28/16 21:00 07/28/16 20:59 Piperacillin Sod/ Tazobactam Sod/ Dextrose (Zosyn/D5W) 110 ml @ 27.5 mls/hr EVERY 8 HOURS IVPB 06/28/16 22:00 06/30/16 21:59 06/29/16 21:13 Promethazine HCl/ Codeine (Phenergan with Codeine) 5 ml EVERY 6 HOURS PRN ORAL cough 06/28/16 18:00 07/28/16 17:59 Temazepam (Restoril) 15 mg HSPRN PRN ORAL Insomnia 06/29/16 15:00 07/06/16 14:59 Theophylline (Pablo-Dur) 100 mg EVERY 12 HOURS ORAL 06/28/16 21:00 07/28/16 20:59 06/29/16 21:12 Warfarin Sodium (Coumadin per pharmacy) 1 ea DAILY PRN MISC . 06/29/16 09:00 07/29/16 08:59 Mert ([facility])Vikki NP Jun 30, 2016 07:16
--- NOTE | 2016-07-03 07:40 | Discharge Summary ---
Discharge Summary Hospital Course Date of Admission Jun 24, 2016 at 10:53 Date of Discharge Jun 30, 2016 at 06:00 Admitting Diagnosis dyspnea HPI Kimberly Charles is a 70 year old female who was admitted on Jun 24, 2016 at 10: 53 for Coronary Syndrome Hospital Course dc summary dictated #[id number] Discharge Medications Continued Medications: Amlodipine Besylate* (Amlodipine Besylate*) 10 Mg Tablet 10 MG ORAL DAILY, TAB Warfarin Sod* (Warfarin Sod*) 5 Mg Tablet 5 MG ORAL DAILY, TAB Discharge Condition Upon Discharge: stable Discharge Disposition Patient was discharged to Home (01) Discharge Diagnoses: Discharge Instructions Discharge Instructions Special Instructions I have been assigned to complete a D/C Summary on this account. I was not involved in the patient management Mert Dunn)Vikki NP Jul 03, 2016 07:40
--- NOTE | 2016-07-03 09:59 | Discharge Summary 2 SIG ---
DATE OF ADMISSION: 06/24/2016 DATE OF DISCHARGE: 06/30/2016 REASON FOR ADMISSION: The patient is a 70-year-old morbidly obese female with recently diagnosed pulmonary emboli at [facility], on Coumadin, presented with complaints of shortness of breath, cough, and congestion. She recently had pneumonia. Shortness of breath started few days ago. She reported productive cough and wheezing, no hemoptysis. No chest pain. Denied headache. No abdominal pain. No dysuria. No flank pain. Workup in the emergency room revealed negative troponin. No leukocytosis. Elevated pro BNP. Chest x-ray revealed some mild pulmonary congestion. EKG demonstrated sinus rhythm with nonspecific ST and T-wave changes. Pulse oximetry was 100% on room air. ADMITTING DIAGNOSES: 1. Dyspnea. 2. Tracheobronchitis. 3. CHF 4. Reactive airway exacerbation. 5. Morbid obesity. 6. Hypertension. 7. Recent diagnosis of pulmonary emboli HOSPITAL COURSE: The patient admitted to Med/Surg floor. Pulmonary consult was requested. Supplemental oxygen and pulmonary toilet in form of nebulizing treatment and chest physical therapy provided as needed. The patient started on empiric antibiotics. The patient started on short course IV steroids, which were tapered and discontinued. Sputum culture was negative. Blood culture were negative. Trial of theophylline provided. Antitussive given as needed. Incentive spirometer was provided at the bedside and explained the use and rationale for use. Prior to discharge, antibiotic and steroids as well as the theophylline were all discontinued. Initial chest x-ray was evidence of pulmonary congestion , elevated pro BNP. Started on gentle diuresis Followup chest x-ray revealed significant improvement in pulmonary congestion. Blood pressure was managed with calcium channel kevin and was stable. Continue current regimen. Echocardiogram revealed preserved ejection fraction of 60% to 65% and moderate left ventricular hypertrophy. Coumadin was resumed and continue. INR therapeutic. Recommended sleep study as outpatient. The patient likely have obstructive sleep apnea and will benefit from the CPAP at home at night time. The patient was stable for discharge. DISCHARGE MEDICATIONS: See medication reconciliation list. DISCHARGE INSTRUCTIONS: Follow up with the primary doctor in next week. DISCHARGE DIAGNOSES: 1. Dyspnea- multifactorial due to reactive airway exacerbation and mild CHF exacerbation, resolved. 2. Reactive airway disease exacerbation. 3. Purulent bronchitis/tracheobronchitis. 4. CHF with mild exacerbation 4. Pulmonary embolism. 5. Morbid obesity. 6. Possible obstructive sleep apnea. 7. Hypertension. Clifton Mendoza M.D. I have been assigned to dictate discharge summary on this account and I was not involved in the patient's management. Vikki Painting ([facility] NMonetPMonet DR: Franck JOB#: [id number] CC: ASHLEY
== END 2016-06-30 06:00 | disposition home or self-care (01) | DRG 202 ==
LOC: EMR 10:47 → 2E 10:53 → EDBEDREQ 10:56 → 2E 14:34 → 4E 06-28 18:46
DX: J45.901 Unspecified asthma with (acute) exacerbation (principal); I26.99 Other pulmonary embolism without acute cor pulmonale; Z68.41 Body mass index [BMI] 40.0-44.9, adult; I50.9 Heart failure, unspecified; J41.1 Mucopurulent chronic bronchitis; E66.01 Morbid (severe) obesity due to excess calories; Z79.01 Long term (current) use of anticoagulants; I10 Essential (primary) hypertension; M17.9 Osteoarthritis of knee, unspecified; G47.33 Obstructive sleep apnea (adult) (pediatric)
CPT/HCPCS: 36415; 71010; 80053; 82550; 82553; 82962; 83690; 83880; 84484; 85007; 85025; 85610; 85730; 87040; 87070; 87081; 87205; 93005; 93306; 94640; 94664

== ENCOUNTER 2020-05-14 20:05 | Emergency (ER) | payer BC, MEDICARE ==
[~2020-05-14] VITALS: Ht 167.6 cm; Wt 108.9 kg
[~2020-05-14 20:05] MED LIST: AMLODIPINE BESY10 MG ORAL; CATAPRES0.1 MG ORAL; LOTREL1 CAP ORAL; LOVENOX10 M2 SUBQ; WARFARIN SODIUM5 MG ORAL
--- NOTE | 2020-05-14 20:20 | Emergency Room Report ---
History of Present Illness General Chief Complaint: Dyspnea/Respdistress Present Illness HPI 74-year-old female here with 1 hour of shortness of breath. Patient states that she took her antihypertensive medicine and then soon after that she became short of breath. She called paramedics and was initially brought to [facility] but left AGAINST MEDICAL ADVICE due to the long wait. Paramedics were going to bring her home but told her that "there was something on her EKG and that needed to be checked out." Patient denies headache, vision changes, fevers, chills, chest pain, palpitations, cough, back pain, abdominal pain, nausea, vomiting, diarrhea, dysuria. Patient does have a history of DVT and pulmonary embolism. She had pulmonary embolism 2 years ago and was placed on warfarin which she has been taking as directed. She says that she had a follow- up CT scan that showed "my lungs were clear of any clots." Allergies: Coded Allergies: No Known Allergies (Verified , 08/26/08) COVID-19 Screening Contact w/high risk pt: No Experienced COVID-19 symptoms?: No COVID-19 Testing performed ACTIVE DIRECTORY ENGINEER: Yes COVID-19 Screening: Negative COVID-19 COVID-19 Testing Source: . Patient History Now: No Nursing Documentation-PMH Hx Hypertension: Yes Review of Systems All Other Systems: negative except mentioned in HPI Physical Exam Vital Signs Date Time Temp Pulse Resp B/P (MAP) Pulse Ox O2 Delivery O2 Flow Rate FiO2 05/14/20 20:07 96.3 104 20 191/88 (122) 99 Sp02 EP Interpretation: reviewed, normal General Appearance: no apparent distress, alert, non-toxic, other - Morbidly obese Head: normocephalic, atraumatic Eyes: bilateral eye normal inspection, bilateral eye PERRL ENT: hearing grossly normal, normal pharynx, no angioedema, normal voice Neck: full range of motion, supple/symm/no masses Respiratory: chest non-tender, lungs clear, normal breath sounds, speaking full sentences Cardiovascular #1: regular rate, rhythm, no edema Cardiovascular #2: 2+ carotid (R), 2+ carotid (L), 2+ radial (R), 2+ radial (L), 2+ dorsalis pedis (R), 2+ dorsalis pedis (L) Gastrointestinal: normal bowel sounds, non tender, soft, non-distended, no guarding, no rebound Rectal: deferred Genitourinary: normal inspection, no CVA tenderness Musculoskeletal: back normal, normal range of motion, gait/station normal, non- tender, other - No leg swelling or leg pain Neurologic: alert, motor strength/tone normal, oriented x3, sensory intact, responsive, speech normal Psychiatric: judgement/insight normal, memory normal, mood/affect normal, no suicidal/homicidal ideation Lymphatic: no adenopathy Medical Decision Making ER Course Laboratory Tests Test 05/14/20 20:30 White Blood Count 5.7 K/UL (4.8-10.8) Red Blood Count 4.98 M/UL (4.20-5.40) Hemoglobin 13.3 G/DL (12.0-16.0) Hematocrit 40.6 % (37.0-47.0) Mean Corpuscular Volume 82 FL (80-99) Mean Corpuscular Hemoglobin 26.6 PG (27.0-31.0) L Mean Corpuscular Hemoglobin Concent 32.7 G/DL (32.0-36.0) Red Cell Distribution Width 18.5 % (11.6-14.8) H Platelet Count 229 K/UL (150-450) Mean Platelet Volume 8.4 FL (6.5-10.1) Neutrophils (%) (Auto) 72.6 % (45.0-75.0) Lymphocytes (%) (Auto) 17.5 % (20.0-45.0) L Monocytes (%) (Auto) 6.1 % (1.0-10.0) Eosinophils (%) (Auto) 3.0 % (0.0-3.0) Basophils (%) (Auto) 0.7 % (0.0-2.0) Prothrombin Time 18.1 SEC (9.30-11.50) H Prothrombin Time INR 1.7 (0.9-1.1) H Activated Partial Thromboplast Time 34 SEC (23-33) H Sodium Level 138 MMOL/L (136-145) Potassium Level 3.8 MMOL/L (3.5-5.1) Chloride Level 103 MMOL/L (98-107) Carbon Dioxide Level 31 MMOL/L (21-32) Anion Gap 4 mmol/L (5-15) L Blood Urea Nitrogen 21 mg/dL (7-18) H Creatinine 1.4 MG/DL (0.55-1.30) H Estimated Glomerular Filtration Rate 44.5 mL/min (>60) Glucose Level 150 MG/DL (74-106) H Calcium Level 9.6 MG/DL (8.5-10.1) Total Bilirubin 0.4 MG/DL (0.2-1.0) Aspartate Amino Transferase (AST) 14 U/L (15-37) L Alanine Aminotransferase (ALT) 13 U/L (12-78) Alkaline Phosphatase 166 U/L (46-116) H Troponin I 0.000 ng/mL (0.000-0.056) Pro-B-Type Natriuretic Peptide 223 pg/mL (0-125) H Total Protein 8.3 G/DL (6.4-8.2) H Albumin 3.7 G/DL (3.4-5.0) Globulin 4.6 g/dL Albumin/Globulin Ratio 0.8 (1.0-2.7) L EKG: NSR, no ischemia, intervals WNL. No ectopy. Rate 100 bpm Rhythm strip: patient monitored for arrhythmias - no malignant dysrhythmias, runs of PVCs, nor pauses noted 74-year-old female with a history of pulmonary emboli and DVTs on warfarin here with shortness of breath. Patient said her shortness of breath started acutely before come to the emergency department. CBC unremarkable. CMP revealed a GFR of 44.5. Awaiting results of CTA chest to rule out pulmonary embolus. Signed out to oncoming physician Dr. Ferreira Last Vital Signs Date Time Temp Pulse Resp B/P (MAP) Pulse Ox O2 Delivery O2 Flow Rate FiO2 05/14/20 20:07 96.3 104 20 191/88 (122) 99 Spencer German M.D. May 14, 2020 20:19
[2020-05-14] MEDS ORDERED: Omnipaque 350 100ml vial INJ PRN (20:30)
--- NOTE | 2020-05-14 20:30 | NUR ---
ED Nurse Note: Recieved pt BIBA from home with c/o sudden,severe SOB for past 1 hour, pt denies having any other s/s, no fevers, nausea, emesis or other complaints, pt states had similar episode in past, about 1 week ago and resolved on its own, not resolving tonight, pt has hx of HTN, pt immediately gowned and placed on cardiac monitoring, will resume care as ordered and closely monitor. pt sating well.
[2020-05-14 21:11] LABS: BASOPHILS % (AUTO) 0.7 % (0.0-2.0); HEMATOCRIT 40.6 % (37.0-47.0); HEMOGLOBIN 13.3 G/DL (12.0-16.0); LYMPHOCYTES % (AUTO) 17.5 % (20.0-45.0); MEAN CORPUSCULAR VOLUME 82 FL (80-99); MONOCYTES % (AUTO) 6.1 % (1.0-10.0); NEUTROPHILS % (AUTO) 72.6 % (45.0-75.0); PLATELET COUNT 229 K/UL (150-450); RED BLOOD COUNT 4.98 M/UL (4.20-5.40); RED CELL DISTRIBUTION WIDTH 18.5 % (11.6-14.8); WHITE BLOOD COUNT 5.7 K/UL (4.8-10.8)
[2020-05-14 21:15] VITALS: BP 171/80
[2020-05-14 21:15] LABS: INR 1.7 (0.9-1.1)
--- NOTE | 2020-05-14 21:15 | NUR ---
ED Nurse Note: Pt ambulated to bathroom, tolerated poorly due to SOB, pt had to stop multiple times and sob is more on exertion, denies cp or any pain, assisted back to bed and monitoring, pt waiting to have CTA, will continue to monitor.
--- NOTE | 2020-05-14 21:25 | Diagnostic Imaging Report ---
EXAM: XR Chest, 1 View CLINICAL HISTORY: SOB TECHNIQUE: Frontal view of the chest. COMPARISON: 06/26/16 FINDINGS: Lungs: Otherwise no acute cardiopulmonary disease. Possible rounded lucency right lower lung base 1.8 cm since size of uncertain significance. Pleural space: Unremarkable. No pneumothorax. Heart: Cardiomegaly. Mediastinum: Unremarkable. Bones/joints: No acute abnormality IMPRESSION: 1. Cardiomegaly. 2. Recommend CT chest without IV contrast to further evaluate for cystic or cavitary right lower based lesion. 3. Otherwise no acute cardiopulmonary disease.
[2020-05-14 21:28] LABS: CALCIUM 9.6 MG/DL (8.5-10.1); CREATININE 1.4 MG/DL (0.55-1.30); POTASSIUM 3.8 MMOL/L (3.5-5.1)
[2020-05-14 21:33] LABS: ALBUMIN 3.7 G/DL (3.4-5.0); ALBUMIN/GLOBULIN RATIO 0.8 (1.0-2.7); BILIRUBIN,TOTAL 0.4 MG/DL (0.2-1.0)
--- NOTE | 2020-05-14 22:23 | Emergency Room Report ---
Physical Exam Vital Signs Date Time Temp Pulse Resp B/P (MAP) Pulse Ox O2 Delivery O2 Flow Rate FiO2 05/14/20 20:07 96.3 104 20 191/88 (122) 99 05/14/20 21:15 Room Air Sp02 EP Interpretation: reviewed, normal Medical Decision Making Diagnostic Impression: Primary Impression: Shortness of breath Additional Impressions: Pulmonary nodule Reactive airway disease Morbid obesity with BMI of 40.0-44.9, adult ER Course I, Dr Corinne Ferreira, have assumed care of the patient. Initial workup, history, and physical performed by previous provider has been reviewed by myself and I have performed my own physical exam of the patient. Care signed out to me by Dr. German at 2200 pending CTA to evaluate for pulmonary embolus. Differential diagnosis includes URI, bronchitis, viral syndrome, postnasal drip, versus less likely pneumonia, PE, [place]/obesity hypoventilation syndrome among others. The patient is nontoxic and well-appearing and has no significant shortness of breath or fever . No evidence of ENT emergency, airway patent, tolerating oral liquids and solids. No stridor or difficulty breathing. Tonsils within normal limits, no evidence of swelling, exudate or strep pharyngitis. No indication for empiric antibiotic treatment. Sublingual space soft. The patient's lung sounds are normal and the patient exhibits no evidence of respiratory distress. Chest x-ray revealed no evidence of obvious consolidation of infiltrate. EKG shows no change from previous. Doubt ACS. Patient denies ongoing SOB, CP, nausea, or anginal equivalent. Her tachycardia resolved without issues. The patient's presentation appears consistent with bronchitis, without any indication for antibiotics. CTA chest shows no PE. There is a mosaic lung attenuation representing small airway disease. Incidental finding of pulmonary nodules as well. No CM, no pericardial effusion, RV dysfunction, or pleural effusions/interstitial edema. The patient was instructed to follow up with their physician in 1-2 days and instructed to return if symptoms worsen with progressively worsening shortness of breath or difficulty breathing, persistent fever, chest pains or discomfort, inability to keep medication or fluids down with or without vomiting, or any other new, worsening or concerning symptoms. She states she already has followup with her PMD on Sunday (Dr Clifton Mendoza) to check her INR. She does not need any refills of her home meds at this time EKG Diagnostic Results PA Chade Text 12-lead EKG (interpreted by ) Time: 2023 Indication: Rhythm analysis Tracing visualized and Interpreted by . Rhythm: Sinus tachycardia Rate: 100 bpm QTc: 464 Morphology: No_significant_ST_elevations_or_depressions, No STEMI Impression:ST depressions in lead I and aVL. Nonspecific ST changes in the lateral leads. Ectopy. Normal axis. Normal intervals. Rhythm Strip Diag. Results Rhythm Strip Time: 22:31 EP Interpretation: yes Rate: 98 Rhythm: NSR, no PVC's, no ectopy Chest X-Ray Diagnostic Results Chest X-Ray Diagnostic Results : [facility] Chest X-Ray: Views: [ 1 ] view(s) Indication: Shortness of breath Findings: Cardiomegaly. Mediastinum normal. Right lower lung infiltrate Impression: CHF The X-ray(s) were independently viewed and interpreted contemporaneously Electronically signed by , Corinne Ferreira, DO CT/MRI/US Diagnostic Results CT/MRI/US Diagnostic Results : Impression CT Angiography Chest With Intravenous Contrast CLINICAL HISTORY: CP TECHNIQUE: Axial computed tomographic angiography images of the chest with intravenous contrast. CTDI is 25.2 mGy and DLP is 538.4 mGy-cm. One or more of the following dose reduction techniques were used: automated exposure control, adjustment of the mA and/or kV according to patient size, use of iterative reconstruction technique. MIP reconstructed images were created and reviewed. Coronal and sagittal reformatted images were created and reviewed. COMPARISON: 08/25/08 FINDINGS: Pulmonary arteries: No pulmonary embolism. Aorta: No acute findings. No thoracic aortic aneurysm. Lungs: Mosaic lung attenuation could represent small airways disease. Scattered numerous pulmonary nodules, some of which are stable and others of which are not well seen on comparison study, largest of which in the left base measures 0.7 cm coronal series 12, image 96. Pleural space: Unremarkable. No significant effusion. No pneumothorax. Heart: Unremarkable. No cardiomegaly. No significant pericardial effusion. No evidence of RV dysfunction. Mediastinum: Distal esophageal wall thickening. Correlate for esophagitis. Bones/joints: No acute fracture. No dislocation. Soft tissues: Unremarkable. Lymph nodes: Unremarkable. No enlarged lymph nodes. Kidneys and ureters: Consider outpatient MRI abdomen without and with IV contrast to further evaluate heterogeneous left renal appearance, which could be due to small cysts but is not definitively characterized on this study and exophytic masslike left hepatic lobe 2 cm possible cyst not well evaluated on this study. Tubes, lines and devices: Gastric band device, position appears appropriate. IMPRESSION: 1. No pulmonary embolism. 2. Mosaic lung attenuation could represent small airways disease. 3. Recommend follow-up unenhanced CT chest in 3-6 months to evaluate stability of pulmonary nodules. 4. Otherwise no acute abnormality definitively identified to account for patient presentation. 5. Distal esophageal wall thickening. Correlate for esophagitis. 6. Consider outpatient MRI abdomen without and with IV contrast to further evaluate probably benign but incompletely evaluated. Hepatic and renal findings above. 7. Gastric band device, position appears appropriate. Dictated By: Shawn Suarez MD Reevaluation Time: 23:21 Last Vital Signs Date Time Temp Pulse Resp B/P (MAP) Pulse Ox O2 Delivery O2 Flow Rate FiO2 05/14/20 21:15 96.3 98 20 171/80 99 Room Air Status: improved Disposition: HOME, SELF-CARE Admit Decision Time: 22:32 Condition: Stable Scripts Albuterol Sulfate (PROVENTIL HFA) 6.7 Gm Hfa.aer.ad 6.7 GM IH QID for wheeze for 1 Day, #6.7 GM Prov: Corinne Ferreira D.O. 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 You were incidentally found to have pulmonary nodules and as we discussed he will require outpatient follow-up with a ship's officer. Continue to take all your medications as prescribed. Follow-up with your doctor sooner if your condition requires a more timely clinical reevaluation. Return to the emergency department immediately if you feel that your condition is worsening or if you have any new or concerning symptoms. Review your discharge instructions and take any prescriptions given as instructed. [facility] PROVIDES FREE OR LOW-COST HEALTH SERVICES TO PEOPLE WHO CAN SHOW PROOF THAT THEY LIVE IN [facility]. TO FIND MORE CLINICS PARTNERED WITH THE [facility] TO PROVIDE SERVICE, PLEASE CALL . Corinne Ferreira D.O. May 14, 2020 22:23
--- NOTE | 2020-05-14 22:52 | Diagnostic Imaging Report ---
EXAM: CT Angiography Chest With Intravenous Contrast CLINICAL HISTORY: CP TECHNIQUE: Axial computed tomographic angiography images of the chest with intravenous contrast. CTDI is 25.2 mGy and DLP is 538.4 mGy-cm. One or more of the following dose reduction techniques were used: automated exposure control, adjustment of the mA and/or kV according to patient size, use of iterative reconstruction technique. MIP reconstructed images were created and reviewed. Coronal and sagittal reformatted images were created and reviewed. COMPARISON: 08/25/08 FINDINGS: Pulmonary arteries: No pulmonary embolism. Aorta: No acute findings. No thoracic aortic aneurysm. Lungs: Mosaic lung attenuation could represent small airways disease. Scattered numerous pulmonary nodules, some of which are stable and others of which are not well seen on comparison study, largest of which in the left base measures 0.7 cm coronal series 12, image 96. Pleural space: Unremarkable. No significant effusion. No pneumothorax. Heart: Unremarkable. No cardiomegaly. No significant pericardial effusion. No evidence of RV dysfunction. Mediastinum: Distal esophageal wall thickening. Correlate for esophagitis. Bones/joints: No acute fracture. No dislocation. Soft tissues: Unremarkable. Lymph nodes: Unremarkable. No enlarged lymph nodes. Kidneys and ureters: Consider outpatient MRI abdomen without and with IV contrast to further evaluate heterogeneous left renal appearance, which could be due to small cysts but is not definitively characterized on this study and exophytic masslike left hepatic lobe 2 cm possible cyst not well evaluated on this study. Tubes, lines and devices: Gastric band device, position appears appropriate. IMPRESSION: 1. No pulmonary embolism. 2. Mosaic lung attenuation could represent small airways disease. 3. Recommend follow-up unenhanced CT chest in 3-6 months to evaluate stability of pulmonary nodules. 4. Otherwise no acute abnormality definitively identified to account for patient presentation. 5. Distal esophageal wall thickening. Correlate for esophagitis. 6. Consider outpatient MRI abdomen without and with IV contrast to further evaluate probably benign but incompletely evaluated. Hepatic and renal findings above. 7. Gastric band device, position appears appropriate.
[2020-05-14 23:05] VITALS: BP 164/71
[2020-05-14] MEDS ORDERED: PROVENTIL HFA6.7 G1 IH (23:22)
--- NOTE | 2020-05-14 23:30 | NUR ---
ER DISCHARGE NOTE: Patient is cleared to be discharged per ERMD, pt is aox4, on room air, with stable vital signs. pt was given dc and prescription instructions, pt was able to verbalize understanding, pt id band and iv site removed without complications. pt is able to ambulate with steady gait. pt took all belongings.
[2020-05-14 23:40] VITALS: BP 164/71
== END 2020-05-14 23:40 | disposition home or self-care (01) ==
LOC: EDUNIT# 20:05 → EDBD 20:05 → EMR 21:00
DX: J45.909 Unspecified asthma, uncomplicated (principal); R06.02 Shortness of breath; R91.1 Solitary pulmonary nodule; E66.01 Morbid (severe) obesity due to excess calories; I10 Essential (primary) hypertension; Z86.718 Personal history of other venous thrombosis and embolism; Z68.41 Body mass index [BMI] 40.0-44.9, adult
CPT/HCPCS: 36415; 71045; 71275; 80053; 83880; 84484; 85025; 85610; 85730; 93005; 99284; Q9967